=== PATIENT | male | born 1970 | race Caucasian/White ===

== ENCOUNTER 2025-08-25 12:37 | Emergency (ER) | payer BC, SELFPAY ==
[2025-08-25] VITALS (7 sets, daily range): BP systolic 112–129; BP diastolic 68–78; PULSE 96–106; RESP 20–30; TEMP 36.4; O2SAT 93–97; BMI 29.4
--- NOTE | 2025-08-25 13:05 | DI.RAD.S_ITS ---
PROCEDURE: XR CHEST 1V INDICATIONS: Chest Pain TECHNIQUE: One view of the chest was acquired. COMPARISON: None. FINDINGS: Surgical changes and devices: None. Lungs and pleura: Lungs are clear. No pleural effusions or pneumothorax. Mediastinum: Mediastinal contours appear normal. Heart size is normal. Bones and chest wall: No suspicious bony lesions. Overlying soft tissues appear unremarkable. IMPRESSION: No acute pulmonary process. Dictated by: Carine Izquierdo M.D. on 08/25/2025 at 13:23 Approved by: Carine Izquierdo M.D. on 08/25/2025 at 13:23
--- NOTE | 2025-08-25 13:16 | EKG_ITS ---
[place] [id number] [place] [id number] Test Date: 2025-08-25 Pat Name: Moustapha Ross Department: [facility] Room: Gender: Male [employer] Att[employer]: MICHAEL : 1970 Requested By: Order Number: [id number] Reading MD: Pedro Bolaños Measurements Intervals [place] Rate: 104 P: 43 WA: 148 QRS: 53 QRSD: 90 T: 18 QT: 334 QTc: 439 Interpretive Statements Sinus tachycardia Electronically Signed On 08-27-2025 8:07:05 PDT by Pedro Bolaños
[2025-08-25 13:40] LABS: Add Manual Diff / Slide Review NO; Hematocrit 37.2 % (41-53); Hemoglobin 12.7 g/dL (13.5-17.5); Lymphocytes Absolute Auto 1900 /uL (1100-4500); Mean Corpuscular HGB Conc 34.0 % (30-36); Mean Corpuscular Hemoglobin 32.8 PG (26-34); Mean Corpuscular Volume 96.4 fL (80-100); Platelet Count 204 X10^3/uL (150-400)
[2025-08-25 13:47] LABS: INR 0.9 (0.9-1.3); Prothrombin Time 10.3 SECONDS (9.4-12.5)
[2025-08-25 13:49] LABS: PTT Partial Thromboplastin Tim 26 SECONDS (25.1-36.5)
[2025-08-25 13:51] LABS: Alanine Aminotransferase 42 IU/L (<50); Albumin 5.0 g/dL (3.5-5.0); Albumin Globulin Ratio 1.5 (1.0-2.8); Alkaline Phosphatase 76 U/L (38-126); Blood Urea Nitrogen 20 mg/dL (9-20); Calcium 9.2 mg/dL (8.4-10.2); Carbon Dioxide 26 mmol/L (22-32); Chloride 101 mmol/L (98-107); Creatine Kinase 107 U/L (55-170); Estimated Glomerular Filt Rate > 60 mL/min (>60); Globulin 3.3 g/dL (1.7-4.1); Glucose 103 mg/dL (70-99); HEMOLYSIS < 15 (0-50); Lipase 123 U/L (23-300); Magnesium 2.3 mg/dL (1.6-2.3); Potassium 4.1 mmol/L (3.4-5.1); Sodium 138 mmol/L (137-145); Total Protein 8.3 g/dL (6.3-8.2)
[2025-08-25 14:02] LABS: NT-proBNP (BNP-Adult 18+) < 20 pg/mL (<125); Troponin I < 0.012 ng/mL (0.01-0.034)
--- NOTE | 2025-08-25 15:12 | ED_ITS ---
HPI - Syncope General Chief Complaint: Syncope Stated Complaint: BP dropped to 84/55 at lunch almost passed out Time Seen by Provider: 08/25/25 14:06 Source: patient Mode of arrival: Ambulatory Limitations: no limitations History of Present Illness HPI narrative: Patient is a 55-year-old male history of hypertension hyperlipidemia presenting today with a near syncopal episode. Reports he had a no as this morning he has been feeling well however he in his for out to lunch he was standing got very dizzy lightheaded and almost passed out he needed to sit down. He denies any chest pain or palpitations. He reports that he always has a fast heart rate and that his normal heart rate is about 100. EMS reports that he was hypotensive in the field blood pressure 84/55 but patient came by POV. He denies any abdominal pain nausea vomiting. He has already ambulated in the ED and feeling better. He denies any significant travel. He does report atrial of 2 hours to [facility] with a week. Related Data Allergies Allergy/AdvReac Type Severity Reaction Status Date / Time No Known Drug Allergies Allergy Verified 08/25/25 13:01 Patient History Social History Smoking Status: Never smoker Smoking Status: Never smoker Exam Initial Vital Signs Initial Vital Signs: Vital Signs Temperature 97.6 F 08/25/25 13:01 Pulse Rate 96 H 08/25/25 13:01 Respiratory Rate 20 08/25/25 13:01 Blood Pressure 112/69 08/25/25 13:01 Pulse Oximetry 97 08/25/25 13:01 Oxygen Delivery Method Room Air 08/25/25 13:01 GENERAL: Alert pleasant well-appearing you 5-year-old and in [no acute] distress. HEENT: Head atraumatic,EOMI, pupils reactive, face symmetric, [moist] mucous membranes CARDIOVASCULAR: Regular rate and rhythm without murmurs, rubs or gallops. Tachycardic no murmurs RESPIRATORY: Breath sounds equal bilaterally, no wheezes rales or rhonchi. ABDOMEN: Soft, nontender. Normoactive bowel sounds all 4 quadrants. No guarding or rebound. EXTREMITIES: Normal range of motion, no clubbing or edema. Neurovascularly intact NEUROLOGICAL: Alert and oriented x4.Normal gait and speech. Cranial nerves II through XII grossly intact. SKIN: Warm, dry, no laceration, no petechiae, no rashes or lesions. Course Orders Ordered: ED Orders 08/25/25 12:25 Complete Blood Count AUTO DIFF Stat Comprehensive Metabolic Panel Stat Lipase Stat Magnesium Stat NT-proBNP (BNP-Adult 18+) Stat PTT Partial Thromboplastin Alec Stat Prothrombin Time INR Stat Troponin & CK Cardiac Panel Stat 08/25/25 13:05 XR chest 1V Stat EKG-12 Lead Stat Discontinued Medications Aspirin (Aspirin 81 Mg Chew Tab) 324 mg PO NOW ONE Stop: 08/25/25 13:06 Vital Signs Vital signs: Vital Signs - 8 hr 08/25/25 13:01 08/25/25 13:35 08/25/25 13:35 Temperature 97.6 F Pulse Rate 96 H 101 H Respiratory Rate 20 30 H Blood Pressure 112/69 116/69 Pulse Oximetry 97 94 Oxygen Delivery Method Room Air 08/25/25 14:00 08/25/25 14:00 08/25/25 14:30 Temperature Pulse Rate 96 H 97 H Respiratory Rate 30 H 28 H Blood Pressure 126/68 Pulse Oximetry 95 95 Oxygen Delivery Method 08/25/25 14:30 08/25/25 14:52 08/25/25 14:52 Temperature Pulse Rate 106 H Respiratory Rate Blood Pressure 124/74 127/72 Pulse Oximetry 95 Oxygen Delivery Method 08/25/25 15:00 08/25/25 15:00 08/25/25 15:30 Temperature Pulse Rate 100 H 103 H Respiratory Rate 24 Blood Pressure 114/68 Pulse Oximetry 94 93 Oxygen Delivery Method 08/25/25 15:30 Temperature Pulse Rate Respiratory Rate Blood Pressure 129/78 Pulse Oximetry Oxygen Delivery Method MDM - Syncope Lab Data 08/25/25 12:25 08/25/25 12:25 Labs: Lab Results 08/25/25 Range/Units 12:25 WBC 6.9 (4.5-11.0) X10^3/uL RBC 3.86 L (4.5-5.9) X10^6/uL Hgb 12.7 L (13.5-17.5) g/dL Hct 37.2 L (41-53) % MCV 96.4 (80-100) fL MCH 32.8 (26-34) PG MCHC 34.0 (30-36) % RDW 14.2 (11.6-14.8) % Plt Count 204 (150-400) X10^3/uL Neut % (Auto) 63.4 (50-75) % Lymph % (Auto) 27.4 (25-40) % [place] % (Auto) 8.3 (3-14) % Eos % (Auto) 0.6 L (2-4) % Baso % (Auto) 0.3 (0-2) % Neut # (Auto) 4300 (7911-2879) /uL Lymph # (Auto) 1900 (3874-2817) /uL [place] # (Auto) 600 (0-900) /uL Eos # (Auto) 0 (0-450) /uL Baso # (Auto) 0 (0-100) /uL PT 10.3 (9.4-12.5) SECONDS INR 0.9 (0.9-1.3) APTT 26 (25.1-36.5) SECONDS Sodium 138 (137-145) mmol/L Potassium 4.1 (3.4-5.1) mmol/L Chloride 101 (98-107) mmol/L Carbon Dioxide 26 (22-32) mmol/L BUN 20 (9-20) mg/dL Creatinine 0.94 (0.66-1.25) mg/dL Estimated GFR > 60 (>60) mL/min BUN/Creatinine Ratio 21.3 (6-22) Glucose 103 H (70-99) mg/dL Calcium 9.2 (8.4-10.2) mg/dL Magnesium 2.3 (1.6-2.3) mg/dL Total Bilirubin 0.3 (0.2-1.3) mg/dL AST 54 (17-59) IU/L ALT 42 (<50) IU/L Alkaline Phosphatase 76 (38-126) U/L Total Creatine Kinase 107 (55-170) U/L Troponin I < 0.012 (0.01-0.034) ng/mL NT-Pro-B Natriuret Pep < 20 (<125) pg/mL Total Protein 8.3 H (6.3-8.2) g/dL Albumin 5.0 (3.5-5.0) g/dL Globulin 3.3 (1.7-4.1) g/dL Albumin/Globulin Ratio 1.5 (1.0-2.8) Lipase 123 (23-300) U/L Imaging Data Chest x-ray: Radiologist's Impression: PROCEDURE: XR CHEST 1V INDICATIONS: Chest Pain TECHNIQUE: One view of the chest was acquired. COMPARISON: None. FINDINGS: Surgical changes and devices: None. Lungs and pleura: Lungs are clear. No pleural effusions or pneumothorax. Mediastinum: Mediastinal contours appear normal. Heart size is normal. Bones and chest wall: No suspicious bony lesions. Overlying soft tissues appear unremarkable. IMPRESSION: No acute pulmonary process. Dictated by: Carine Izquierdo M.D. on 08/25/2025 at 13:23 ECG Data Attestation: I personally reviewed and interpreted this ECG as follows: Interpretation: Normal sinus rhythm rate 104 TX interval 148 QRS [address] changes no T- wave inversions no priors to compare Q-wave noted in lead 3 only nonpathologic MDM Narrative Medical decision making narrative: MDM CC: Near-syncope Complicating co-morbidities: Hypertension Data collected from: and patient Medical records reviewed: None prior Differential considered: Cardiogenic syncope neurogenic syncope anemia electrolyte abnormality dehydration vasovagal, pulmonary embolism Exam documented above, pertinent findings include: Alert very well-appearing 55-year-old male tachycardic no respiratory distress Lab Test results independently reviewed as above. Pertinent findings: CBC no leukocytosis no anemia CMP no electrolyte abnormality no KRISTEN glucose 103 Troponin negative BNP negative Bilirubin liver enzymes within normal limits lipase 120 Independently reviewed EKG as above Sinus tachycardia no ischemia Imaging studies independently reviewed: Chest x-ray no acute cardiopulmonary process Consultations: None Treatments: None Re-evaluations: Patient ambulated in the ED without any difficulty Discussion: Patient 55-year-old healthy male presenting today with near syncopal episode. EMS reports hypotension on scene but that quickly resolved. Blood work is overall reassuring no abnormality. EKGs chest x-ray do not show any abnormality either. Patient is noted to be tachycardic over he says his normal heart rate is right around 100. No concern for pulmonary embolism at this time although was considered. At this time he feels ready able to go home. He has a primary care provider we discussed further workup evaluation and also when to return to ED. verbal understanding with and . Discharge Plan Departure Patient Disposition: Home Clinical Impression: Vasovagal syncope Instructions: DI for Syncope in Adults (Fainting) Activity Restrictions/Additional Instructions: *You have been diagnosed with syncope *What to do: At this time I recommend you follow-up with your primary care doctor recommend heart monitor and evaluation of carotids possible echo those have not yet been done. *Continue to take medications as directed *Follow up with your primary care provider in 2-3 days or call [phone] *Return to ER if you should have recurrent episode of passing out weakness chest pain palpitation or any new, worsening or concerning symptoms Referrals: Tre Rivera MD [Primary Care Provider, Family Practice] Stand Alone Forms: Patient Portal/API
== END 2025-08-25 16:06 | disposition home or self-care (01) ==
PROVIDERS: Emergency Medicine; Emergency Provider Emergency Medicine; PCP Family Medicine
DX: R55 Syncope and collapse (principal); R07.9 Chest pain, unspecified; R00.0 Tachycardia, unspecified
CPT/HCPCS: 36415; 71045; 80053; 82550; 83690; 83735; 83880; 84484; 85025; 85610; 85730; 93005; 99283; 99284